=== PATIENT | male | born 1970 | race African-American/Black ===

== ENCOUNTER 2025-07-23 06:04 | Day surgery (SDC) | payer OTHER ==
[2025-07-15 09:54] VITALS: BMI 39.9
[2025-07-23] MEDS ORDERED: Glycopyrrolate 0.2 MG/ML 5 ML SYRINGE ONE (07:18)
[2025-07-23] MEDS ORDERED: Lidocaine 1% PF 5 ML VIAL ONE (07:18)
== END 2025-07-23 08:50 | disposition home or self-care (01) ==
LOC: CSHSDC 06:04
PROVIDERS: ATTEND Surgery
PROC: 0DJD8ZZ Inspection of Lower Intestinal Tract, Via Natural or Artificial Opening Endoscopic (ICD-10-PCS; principal; 2025-07-23)
DX: Z12.11 Encounter for screening for malignant neoplasm of colon (principal); I12.9 Hypertensive chronic kidney disease with stage 1 through stage 4 chronic kidney disease, or unspecified chronic kidney disease; N18.31 Chronic kidney disease, stage 3a; I48.91 Unspecified atrial fibrillation; E78.2 Mixed hyperlipidemia; F41.1 Generalized anxiety disorder; F33.9 Major depressive disorder, recurrent, unspecified; Z88.8 Allergy status to other drugs, medicaments and biological substances; Z79.01 Long term (current) use of anticoagulants; Z79.899 Other long term (current) drug therapy
CPT/HCPCS: J2704